=== PATIENT | male | born 1995 | race Asian ===

== ENCOUNTER 2017-03-07 00:08 | Emergency (ER) | payer OTHER ==
[~2017-03-07] VITALS: Ht 172.7 cm; Wt 88.8 kg
[2017-03-07] MEDS ORDERED: NORCO 5/3251 TABLET PO (01:26)
[2017-03-07 02:12] VITALS: BP 111/70
== END 2017-03-07 02:13 | disposition home or self-care (01) ==
LOC: EME → TRA 00:08 → EDBD 00:10 → EME 00:10 → TRA 00:10
PROC: 2W3RX1Z Immobilization of Left Lower Leg using Splint (ICD-10-PCS; principal; 2017-03-07)
DX: S99.912A Unspecified injury of left ankle, initial encounter (principal); V47.6XXA Car passenger injured in collision with fixed or stationary object in traffic accident, initial encounter; Y92.410 Unspecified street and highway as the place of occurrence of the external cause; Z87.81 Personal history of (healed) traumatic fracture; Z88.0 Allergy status to penicillin
CPT/HCPCS: 73590; 73610; 99281; 99284